=== PATIENT | male | born 1970 | race Caucasian/White ===

== ENCOUNTER → 2023-10-18 08:37 | Outpatient (REF) | payer BC, SELFPAY | LOC: HWRAD 08:37 | PROVIDERS: OTHER PHYSICIAN Internal Medicine Gastroenterology | DX: R10.32 Left lower quadrant pain (principal) | CPT/HCPCS: 74177; Q9967 ==

== ENCOUNTER → 2023-11-21 08:55 | Outpatient (REF) | payer BC, SELFPAY | LOC: HWRAD 08:55 | PROVIDERS: ATTENDING PHYSICIAN Internal Medicine Gastroenterology | DX: K52.9 Noninfective gastroenteritis and colitis, unspecified (principal) | CPT/HCPCS: 74177; Q9967 ==